=== PATIENT | female | born 1985 | race Caucasian/White ===

== ENCOUNTER 2016-10-01 15:00 | Emergency (ER) | payer SELFPAY ==
[~2016-10-01] VITALS: Ht 167.6 cm; Wt 76.0 kg
[~2016-10-01 15:00] MED LIST: PENI500T PO; TRAM50 PO; Z.0.NO CURRENT MEDS
[2016-10-01 15:01] VITALS: BP 125/95; PULSE 84; RESP 20; TEMP 98.5; O2SAT 100
[2016-10-01] MEDS ORDERED: TRAM50TA PO (15:26)
[2016-10-01] MEDS ORDERED: CLIN1CAP5 PO (15:26)
[2016-10-01] MEDS ORDERED: PERI0.126 SWISH-SPIT (15:26)
[2016-10-01] MEDS ORDERED: IBUP800T23 PO (15:26)
--- NOTE | 2016-10-01 15:26 | PD ---
HPI Chief Complaint: Oral / Dental Pain or Problem Time Seen by Provider: 15:24 Travel History International Travel<30 days: No Contact w/Intl Traveler<30days: No Traveled to known affect area: No History of Present Illness HPI 89-year-old female presents to the emergency department for evaluation of a dental abscess. Patient states that her dentist had her on amoxicillin and then changed her to Keflex. However the abscess never resolved. She states he never did mia the abscess. Reports no fever chills. Does report pain at the site and facial swelling. She has no other symptoms to report at this time. PFS Past Medical History Medical History: Denies Significant Hx Social History Alcohol Use: No Tobacco Use: No Substance Use: No Allergies-Medications (Allergen,Severity, Reaction): Coded Allergies: No Known Allergies (Unverified , 10/01/16) Reported Meds & Prescriptions Reported Meds & Active Scripts Active Tramadol (Tramadol HCl) 50 Mg Tab 50 Mg PO Q6H PRN Peridex Liq (Chlorhexidine Gluconate (Mouth) Liq) 0.12% Soln 15 Ml SWISH-SPIT BID Ibuprofen 800 Mg Tab 800 Mg PO Q8H PRN Clindamycin (Clindamycin HCl) 150 Mg Cap 300 Mg PO Q6H 10 Days Ultram (Tramadol HCl) 50 Mg Tab 1 Tab PO Q6HPRN Pen Vk (Penicillin V Potassium) 500 Mg Tab 1 Tab PO QID Reported No Current Meds (Miscellaneous Medication) Misc Review of Systems Except as stated in HPI: all other systems reviewed are Neg Physical Exam Narrative GENERAL: Well-nourished, well-developed email patient in no acute distress SKIN: Focused skin assessment warm/dry. HEAD: Normocephalic. Edema along the left mandible. No erythema. EYES: No scleral icterus. No injection or drainage. DENTAL: Generalized poor dentition. There is a large area of fluctuance in the left mandibular buccal space. No malocclusion. NECK: Supple, trachea midline. No JVD or lymphadenopathy. CARDIOVASCULAR: Regular rate and rhythm without murmurs, gallops, or rubs. RESPIRATORY: Breath sounds equal bilaterally. No accessory muscle use. Data Data Last Documented VS Vital Signs Date Time Temp Pulse Resp B/P Pulse Ox O2 Delivery O2 Flow Rate FiO2 10/01/16 15:01 98.5 84 20 125/95 100 Room Air Orders Clindamycin (Cleocin) (10/01/16 15:30) Ketorolac Inj (Toradol Inj) (10/01/16 15:30) Chlorhexidine 0.12% Liq (Peridex 0.12% L (10/01/16 15:30) MDM Medical Decision Making Medical Screen Exam Complete: Yes Emergency Medical Condition: Yes Medical Record Reviewed: Yes Differential Diagnosis Abscess versus periodontal disease versus gingivitis versus dental carry Narrative Course 30 year-old female presents to the emergency department for evaluation of a dental abscess. Abscesses I&D. Patient will be started on oral antibiotics. She is encouraged to seek dental evaluation and return immediately if any acute worsening of symptoms. She is already up-to-date on her tetanus vaccination. Procedures Procedure Narrative INCISION AND DRAINAGE OF ABSCESS: A number 18-gauge sterile needle was used to make a shoulder wound across the area of the abscess. The abscess was drained an irrigated with normal saline. Patient tolerated this well. Diagnosis Primary Impression: Dental abscess Referrals: Dentist Primary Care Physician Patient Instructions: Dental Abscess (ED), General Instructions Departure Forms: Tests/Procedures, Work Release Enter return to work date: October 05, 2016 Additional Instructions: Follow-up with a dentist as soon as possible Follow-up with her primary care provider Start antibiotics today. Take them until they are all gone Return immediately to the emergency department with any acute worsening of symptoms Med/Other Pt SpecificInfo: Prescription(s) given Scripts Tramadol 50 Mg Tab50 Mg PO Q6H PRN (PAIN GREATER THAN 6) #15 TAB Ref 0 Prov:Mu Goodman MD 10/01/16 Chlorhexidine Gluconate (Mouth) Liq (Peridex Liq)0.12% Soln15 Ml SWISH-SPIT BID #473 ML Ref 0 Prov:Shelia Tate 10/01/16 Ibuprofen 800 Mg [id number] Mg PO Q8H PRN (Pain/Inflammation) #30 TAB Ref 0 Prov:Shelia Tate 10/01/16 Clindamycin 150 Mg [id number] Mg PO Q6H 10 Days Ref 0 Prov:Shelia Tate 10/01/16 Disposition: 01 DISCHARGE HOME Condition: Stable Shelia Tate October 01, 2016 15:26
[2016-10-01] MEDS ORDERED: CHLORHEXIDINE GLUCONATE 0.12% 15 ML CUP SWISH-SPIT ONE (15:30)
[2016-10-01] MEDS ORDERED: KETOROLAC TROMETHAMINE 60 MG/2 ML (IM) VIAL IM ONE (15:30)
[2016-10-01] MEDS ORDERED: CLINDAMYCIN 150 MG CAP PO ONE (15:30)
== END 2016-10-01 16:01 | disposition home or self-care (01) ==
LOC: NEPD 15:00
DX: K04.7 Periapical abscess without sinus (principal)
CPT/HCPCS: 96372; 99284; J1885